=== PATIENT | female | born 1975 | race Two or more races ===

== ENCOUNTER 2024-05-15 11:59 | Emergency (ER) | payer OTHER ==
[~2024-05-15] VITALS: Ht 162.6 cm; Wt 117.9 kg
[2024-05-15 12:32] VITALS: BP 134/82; O2SAT 98
[2024-05-15] MEDS ORDERED: HYZAAR 100-12.1 EACH PO (12:32)
[2024-05-15] MEDS ORDERED: AMLODIPINE-OLM1 EAC2 PO (12:32)
[2024-05-15] MEDS ORDERED: 0.9 % SODIUM CHLORIDE 1,000 ML IV STA (12:56)
[2024-05-15 13:53] LABS: HEMATOCRIT 38.5 % (36.0-45.00); HEMOGLOBIN 12.5 g/dL (12.0-15.00); MEAN CELL VOLUME 87.2 fL (80.00-100.00); MEAN CORPUSCULAR HEMOGLOBIN 28.4 pg (27.00-32.0); MEAN CORPUSCULAR HGB CONC 32.6 g/dl (32.0-36.0); PLATELET COUNT 241 K/uL (150-450); RED BLOOD COUNT 4.41 M/uL (4.00-6.00); RED CELL DISTRIBUTION WIDTH 14.6 % (11.5-14.5)
[2024-05-15 14:18] LABS: INR 0.94; PROTHROMBIN TIME 10.3 SECONDS (9.0-11.5)
[2024-05-15 14:21] LABS: CALCIUM 8.8 mg/dL (8.5-10.1); CREATININE SERUM 0.78 mg/dL (0.55-1.02); GFR 78.5; POTASSIUM 3.83 mEq/L (3.5-5.1)
== END 2024-05-15 15:11 | disposition home or self-care (01) ==
LOC: ER 12:01
PROVIDERS: Emergency Medicine
DX: N93.8 Other specified abnormal uterine and vaginal bleeding (principal); Z88.6 Allergy status to analgesic agent

== ENCOUNTER 2024-08-07 09:30 | Outpatient (CLI) | payer OTHER ==
[~2024-08-07 09:30] MED LIST: AMLODIPINE-OLM1 EAC2 PO; HYZAAR 100-12.1 EACH PO
== END 2024-08-07 09:32 | disposition home or self-care (01) ==
LOC: NUCLEAR 09:30
PROVIDERS: ATTEND Obstetrics & Gynecology
DX: I82.409 Acute embolism and thrombosis of unspecified deep veins of unspecified lower extremity (principal)

== ENCOUNTER 2024-08-13 10:08 | Outpatient (CLI) | payer OTHER | END 2024-08-13 10:11 | disposition home or self-care (01) | LOC: SONOGRAMA 10:08 | PROVIDERS: ATTEND Pathology Anatomic Pathology & Clinical Pathology | DX: D34 Benign neoplasm of thyroid gland (principal); E07.89 Other specified disorders of thyroid; E04.1 Nontoxic single thyroid nodule ==